=== PATIENT | female | born 1990 | race Caucasian/White ===

== ENCOUNTER 2016-10-02 13:26 | Emergency (ER) | payer SELFPAY ==
--- NOTE | ~2016-10-02 | ER ---
PATIENT'S NAME: ADINA HERRERA [facility] AGE: 26 Y [address] ROOM: [place] [address] LOCATION: [facility] ADMIT DATE: 10/02/2016 ER/Outpatient Report DISCHARGE DATE: 10/02/2016 FAMILY PHYSICIAN: PHYSICIAN, NO ATTENDING PHYSICIAN: Lyubov Barnes Time of Arrival: 1345 hours. Time of Exam: 1350 hours. CHIEF COMPLAINT: Painful urination. HISTORY OF PRESENT ILLNESS: The patient states she has been having pain with urination for the last 2 weeks, seemed like it got better, but within the last 24 hours, it has gotten a lot worse. She says it browne when she urinates. She has had some blood in her urine off and on for the past 12 hours. States she has had problems with constipation, and her last bowel movement was approximately a week ago. Has been nauseated but no vomiting. ALLERGIES: NO KNOWN ALLERGIES. CURRENT MEDICATIONS: On her chart and reviewed by me. PAST MEDICAL HISTORY: Asthma. PAST SURGERIES: None. SOCIAL HISTORY: She smokes 1 pack every two days. Denies use of drugs. Rarely drinks alcohol. REVIEW OF SYSTEMS: All negative other than those mentioned in the HPI. PHYSICAL EXAMINATION: VITAL SIGNS: She weighed 84.9 kg. Blood pressure is 110/72, pulse of 92, respirations 20, temperature of 96.8, O2 saturation is 95% on room air. GENERAL: She is awake, alert, and oriented x4. SKIN: [place], warm, and dry. LUNGS: Respirations are even and nonlabored. Lung sounds are clear PATIENT'S NAME: ADINA HERRERA [facility] AGE: 26 Y [address] ROOM: [place] [address] LOCATION: [facility] ADMIT DATE: 10/02/2016 ER/Outpatient Report DISCHARGE DATE: 10/02/2016 FAMILY PHYSICIAN: PHYSICIAN, NO ATTENDING PHYSICIAN: Lyubov Barnes throughout. HEART: Regular rate and rhythm. ABDOMEN: Soft and nondistended. Bowel sounds are present. LABORATORY DATA AND X-RAYS: Clean-catch UA is obtained, it is positive for many bacteria. IMPRESSION: Urinary tract infection. PLAN: Home, rest, fluids. Tylenol or ibuprofen as needed for fever. Prescription was written for Bactrim. Encouraged over the counter medication for constipation. She is to follow up with her primary provider if symptoms persist or worsen. She verbalized understanding. IRINA MORALES APRN FOR MD ANTOLIN HERNANDEZ/bam /[id number] d: 10/02/16 2329 t: 10/17/16 0702, OUTPATIENT REPORT
[~2016-10-02 13:26] MED LIST: EFFEXOR XR75 MG PO; SEROQUEL100 MG PO; SYMBICORT 16010.2 GM INH
[2016-10-02 14:09] LABS: BILIRUBIN URINE NEGATIVE (NEGATIVE); BLOOD URINE 250 /UL (NEGATIVE); COLOR URINE YELLOW (YELLOW); GLUCOSE URINE NEGATIVE (NEGATIVE); KETONE URINE NEGATIVE (NEGATIVE); LEUKOCYTES URINE 500 /UL (NEGATIVE); NITRITE URINE NEGATIVE (NEGATIVE); PROTEIN URINE 30 mg/dL (NEGATIVE); TURBIDITY URINE 2+ (CLEAR); UROBILINOGEN URINE NORMAL (NORMAL)
[2016-10-02 14:19] LABS: RBC URINE 20-50 #/HPF (NEGATIVE); WBC URINE PACKED FIELD #/HPF (NEGATIVE)
[2016-10-02 14:21] LABS: BACTERIA URINE MANY (NEGATIVE); MUCUS URINE 2+ (NEGATIVE)
== END 2016-10-02 13:35 | disposition disaster alternative care site (69) ==
LOC: GMED 13:26
PROVIDERS: Nurse Practitioner Family
DX: N39.0 Urinary tract infection, site not specified (principal); F17.210 Nicotine dependence, cigarettes, uncomplicated

== ENCOUNTER 2017-01-05 06:31 | Emergency (ER) | payer SELFPAY ==
--- NOTE | ~2017-01-05 | ER ---
PATIENT'S NAME: ADINA HERRERA [facility] [place] AGE: 26 Y [address] ROOM: [place] [address] LOCATION: ED ADMIT DATE: 01/05/2017 ER/Outpatient Report DISCHARGE DATE: 01/05/2017 FAMILY PHYSICIAN: LOUISE WILKINS ATTENDING PHYSICIAN: Lyubov Fuchs Time of Arrival: 0631 hours. Time Seen: 0635 hours. IDENTIFICATION: A 26-year-old female. CHIEF COMPLAINT: Shortness of breath. HISTORY OF PRESENT ILLNESS: The patient is a 26-year-old, female with asthma. She has been on Symbicort and doing very well, but cannot find her Symbicort inhaler. She does not have an albuterol rescue inhaler at this time because she had been doing so well on the Symbicort. She has had no recent cold symptoms, may be a little nasal congestion. No drainage. No fever or chills. Nonproductive cough. This morning, became short of breath. No other problems or concerns. PAST MEDICAL HISTORY: Allergies: No known drug allergies. CURRENT MEDICATIONS: 1. Symbicort. 2. Effexor. 3. Melatonin. MEDICAL PROBLEMS: Asthma. PRIOR SURGERIES: Denies. SOCIAL HISTORY: The patient works at [employer]. Lives here in [place]. She is . She is smoking 5 cigarettes per day. Alcohol use, denies. Drug use, denies. REVIEW OF SYSTEMS: All systems reviewed and negative other than what is noted in the HPI. The patient does have a control implant in her left arm. Her last menstrual period was 2 weeks ago. PATIENT'S NAME: ADINA HERRERA [facility] AGE: 26 Y [address] ROOM: [place] [address] LOCATION: ED ADMIT DATE: 01/05/2017 ER/Outpatient Report DISCHARGE DATE: 01/05/2017 FAMILY PHYSICIAN: PHYSICIAN, LOUISE ATTENDING PHYSICIAN: Lyubov Fuchs PRE-HOSPITAL COURSE: The patient was brought in by ambulance. She did receive an albuterol aerosol treatment en route. She is feeling much better. PHYSICAL EXAMINATION: VITAL SIGNS: Weight 88.8 kg, blood pressure 112/60, pulse 80, respirations 18, temperature 96.5, and saturations 98% on room air. GENERAL: A 26-year-old female, in no acute distress. HEENT: Head: Normocephalic, atraumatic. Ears: TMs are translucent both ears. Eyes: Pupils are equal and reactive to light and accommodation. Extraocular movements are intact. Nose: Mucosa is slightly congested. No drainage. No sinus tenderness. Mouth: No lesions. Pharynx benign. NECK: Supple. No lymphadenopathy. No nuchal rigidity. LUNGS: Clear to auscultation. Breath sounds are equal. No rhonchi, wheezes, or rales. HEART: Regular rate and rhythm. No murmur, rub, or gallop. ABDOMEN: Bowel sounds are present. Soft, nondistended. No hepatosplenomegaly. No palpable masses. Nontender. SKIN: [place], warm, and dry. No lesions or rashes noted. No lower extremity edema. NEURO: The patient is alert and oriented x4. Cranial nerves 2 through 12 grossly intact. Motor strength 5/5 throughout. Sensation is intact to light touch. EXTREMITIES: No lower extremity edema. No calf tenderness. IMPRESSION: Asthma exacerbation. PLAN: The patient remained stable throughout her stay here. Albuterol inhaler 2 puffs q.4 hours p.r.n., dispensed one with 1 refill; Symbicort 160/4.5, two puffs b.i.d., #1 with no refills. Follow up with Dr. Hoang next week. Follow up sooner if any problems or concerns. Follow up immediately if any respiratory distress. The patient understands and agrees and all questions have been answered. LYUBOV FUCHS MD CAR/modl PATIENT'S NAME: ADINA HERRERA [facility] [place] AGE: 26 Y [address] ROOM: [place] [address] LOCATION: ED ADMIT DATE: 01/05/2017 ER/Outpatient Report DISCHARGE DATE: 01/05/2017 FAMILY PHYSICIAN: PHYSICIAN, NO ATTENDING PHYSICIAN: Lyubov Fuchs /[id number] d: 01/05/17819 t: 01/05/17 1409, OUTPATIENT REPORT
== END 2017-01-05 07:01 | disposition disaster alternative care site (69) ==
LOC: GMED 06:31
DX: J45.901 Unspecified asthma with (acute) exacerbation (principal); F17.210 Nicotine dependence, cigarettes, uncomplicated; Z79.899 Other long term (current) drug therapy